=== PATIENT | female | born 1975 | race Caucasian/White ===

== ENCOUNTER 2023-04-01 12:43 | Emergency (ER) | payer MEDICAID ==
[2023-04-01] MEDS ORDERED: Sodium Chloride 0.9% 10 ML Syringe FLUSH PRN (13:22)
[2023-04-01] MEDS ORDERED: Sodium Chloride 0.9% 1,000 ML IV SCH (13:30)
[2023-04-01 15:22] LABS: BASOPHILS ABSOLUTE AUTO 0.02 K/mm3 (0.01-0.08); BASOPHILS PERCENT AUTO 0.2 % (0.1-1.2); EOSINOPHILS ABSOLUTE AUTO 0.02 K/mm3 (0.04-0.36); EOSINOPHILS PERCENT AUTO 0.2 (0.7-5.8); HEMATOCRIT 29.3 % (34.1-44.9); HEMOGLOBIN 9.4 gm/dl (11.2-15.7); IMMATURE GRAN ABSOLUTE AUTO 0.09 K/mm3 (0.00-0.10); IMMATURE GRAN PERCENT AUTO 0.7 % (<=1.0); LYMPHOCYTES ABSOLUTE AUTO 2.71 K/mm3 (1.18-3.74); LYMPHOCYTES PERCENT AUTO 20.3 % (19.3-51.7); MEAN CORPUSCULAR HEMOGLOBIN 26.5 pg (25.6-32.2); MEAN CORPUSCULAR HGB CONC 32.1 g/dl (32.2-35.5); MEAN CORPUSCULAR VOLUME 82.5 fl (79.4-94.8); MEAN PLATELET VOLUME 8.5 fl (9.4-12.3); MONOCYTES ABSOLUTE AUTO 0.71 K/mm3 (0.24-0.36); MONOCYTES PERCENT AUTO 5.3 % (4.7-12.5); NEUTROPHILS ABSOLUTE AUTO 9.78 K/mm3 (1.56-6.13); NEUTROPHILS PERCENT AUTO 73.3 % (34.0-71.1); PLATELET COUNT,PLT 441 K/mm3 (182-369); RED BLOOD CELL COUNT 3.55 M/mm3 (3.98-5.22); WHITE BLOOD CELL COUNT,WBC 13.33 K/mm3 (3.98-10.04)
[2023-04-01 15:38] LABS: INR 0.96; PROTHROMBIN TIME 10.3 SECONDS (9.7-12.0)
[2023-04-01 15:39] LABS: PTT,PARTIAL THROMBOPLSTIN TIME 24.8 SECONDS (21.7-31.4)
[2023-04-01 15:41] LABS: A/G RATIO 0.5 (1-2); ALBUMIN 1.8 g/dl (3.4-5.0); ANION GAP 10.1 (5-15); BILIRUBIN TOTAL 0.3 mg/dL (0.2-1.0); BUN/CREATININE RATIO 24.3 (14-18); CALCIUM 8.6 mg/dL (8.5-10.1); CREATININE 2.3 mg/dL (0.55-1.02); EST CRCL DRUG DOSING (CG) 18.53 mL/min; POTASSIUM,K 3.1 mEq/L (3.5-5.1); PROTEIN TOTAL,TP 5.4 g/dl (6.4-8.2)
[2023-04-01] MEDS ORDERED: Albumin 25% 12.5 GM/50 ML BAG IV ONE ×3 (15:50→15:54)
== END 2023-04-01 17:55 | disposition home or self-care (01) ==
LOC: JD.ED 12:43
DX: K74.69 Other cirrhosis of liver (principal); R18.8 Other ascites; I95.89 Other hypotension; D64.89 Other specified anemias; N28.9 Disorder of kidney and ureter, unspecified; E88.09 Other disorders of plasma-protein metabolism, not elsewhere classified
CPT/HCPCS: 36415; 80053; 85025; 85610; 85730; 96361; 96365; 96366; 99284; J3490; J7030; P9047

== ENCOUNTER 2023-04-02 07:27 | Emergency (ER) | payer MEDICAID ==
[2023-04-02] MEDS ORDERED: Sodium Chloride 0.9% 10 ML Syringe FLUSH PRN (08:15)
[2023-04-02] MEDS ORDERED: Albumin 25% 50 GM in Premix Bag 1 BAG IV SCH (08:15)
[2023-04-02] MEDS ORDERED: Albumin 25% 50 GM in Premix Bag 1 BAG IV ONE (08:30)
[2023-04-02] MEDS: Albumin 25% 12.5 GM in Premix Bag 1 BAG IV SCH ×4 (08:40→10:20)
== END 2023-04-02 11:16 | disposition home or self-care (01) ==
LOC: JD.ED 07:27
DX: K74.69 Other cirrhosis of liver (principal); R18.8 Other ascites
CPT/HCPCS: 49083; 96365; 96366; 99283; P9047

== ENCOUNTER 2023-10-30 09:56 | Emergency (ER) | payer SELFPAY | END 2023-10-30 12:45 | disposition home or self-care (01) | LOC: JD.ED 09:56 | DX: R18.8 Other ascites (principal); Z88.8 Allergy status to other drugs, medicaments and biological substances | CPT/HCPCS: 99283 ==

== ENCOUNTER 2024-05-09 19:46 | Emergency (ER) | payer MEDICAID ==
[2024-05-09 21:16] LABS: BASOPHILS PERCENT AUTO 0.3 % (0.0-1.0); EOSINOPHILS PERCENT AUTO 0.1 % (0.0-6.0); HEMATOCRIT 25.4 % (37.0-47.0); HEMOGLOBIN 8.4 gm/dl (12.0-16.0); IMMATURE GRAN PERCENT AUTO 0.7 % (0.0-0.4); LYMPHOCYTES ABSOLUTE AUTO 2.8 K/mm3 (1.0-4.8); LYMPHOCYTES PERCENT AUTO 19.5 % (24.0-44.0); MEAN CORPUSCULAR HEMOGLOBIN 26.9 pg (28.0-32.0); MEAN CORPUSCULAR HGB CONC 33.1 g/dl (32.0-36.0); MEAN CORPUSCULAR VOLUME 81.4 fl (83.0-99.0); MEAN PLATELET VOLUME 8.3 fl (9.4-12.3); MONOCYTES ABSOLUTE AUTO 0.5 K/mm3 (0.0-0.8); MONOCYTES PERCENT AUTO 3.4 % (0.0-8.0); NEUTROPHILS ABSOLUTE AUTO 10.9 K/mm3 (1.8-7.7); PLATELET COUNT,PLT 598 K/mm3 (150-400); RED BLOOD CELL COUNT 3.12 M/mm3 (4.10-5.30); WHITE BLOOD CELL COUNT,WBC 14.29 K/mm3 (3.9-11.3)
[2024-05-09 21:38] LABS: INR 1.12; PROTHROMBIN TIME 11.8 SECONDS (9.7-12.0)
[2024-05-09 21:40] LABS: PTT,PARTIAL THROMBOPLSTIN TIME 26.5 SECONDS (21.7-31.4)
[2024-05-09 21:42] LABS: A/G RATIO 0.5 (1-2); ALBUMIN 1.5 g/dl (3.4-5.0); ANION GAP 14.8 (5-15); BILIRUBIN TOTAL 0.3 mg/dL (0.2-1.0); BUN/CREATININE RATIO 11.2 (14-18); CALCIUM 7.5 mg/dL (8.5-10.1); CREATININE 1.7 mg/dL (0.55-1.02); EST CRCL DRUG DOSING (CG) 24.31 mL/min; POTASSIUM,K 3.8 mEq/L (3.5-5.1); PROTEIN TOTAL,TP 4.7 g/dl (6.4-8.2)
[2024-05-09] MEDS: Metoclopramide 10 MG/2 ML SDV IVPUSH ONE (22:09)
[2024-05-09] MEDS: HYDROmorphone 0.5 MG/0.5 ML Syringe IVPUSH ONE (22:10)
[2024-05-10] MEDS: Albumin 25% 50 ML ONE (02:03)
[2024-05-10] MEDS: Albumin 25% 12.5 GM/50 ML BAG IV ONE (02:04)
[2024-05-10] MEDS: Lidocaine 2% with EPINEPHrine 1:100,000 20 ML MDV ONE (02:05)
[2024-05-10] MEDS: Acetaminophen/oxyCODONE 325-5 MG Tab PO ONE (03:00)
== END 2024-05-10 03:10 | disposition home or self-care (01) ==
LOC: JD.ED 19:46
DX: K70.31 Alcoholic cirrhosis of liver with ascites (principal); Z98.890 Other specified postprocedural states; Z88.8 Allergy status to other drugs, medicaments and biological substances
CPT/HCPCS: 36415; 49082; 80053; 83690; 85025; 85610; 85730; 96365; 96375; 99284; A9270; J1170; J1642; J2765; P9047; J3490